=== PATIENT | male | born 1990 | race Caucasian/White ===

== ENCOUNTER 2024-08-17 03:42 | Emergency (ER) | payer SELFPAY ==
[2024-08-17 03:42] VITALS: BP 178/98; PULSE 66; RESP 20; TEMP 36.5; O2SAT 100
--- OUTSIDE RECORDS SUMMARY | 2024-08-17 03:48 | XMS_ITS | Clinical Summary ---
Author Organization [facility] Address [address] [place] [address] Care Team Providers Care Permit Coordinator Name Role Phone Jacob Aragon MD Primary Care Provider [phone] Source Comments [employer],non-owned Affiliates and Associated Physician Practices is amultiple site organization consisting of ambulatory clinics and hospital sitesin [place], [place], [place] and [place]. This disclosure is being madepursuant to the Care Everywhere program and may not contain all information available regarding this patient. Last updated 18.[employer] Allergies No known active allergies Medications * Be aware that medications may not be up to date on this document. Alwaysverify current medications with the patient. Medication Sig Dispensed Refills Start Date End Date Status dulaglutide (Trulicity) 3 MG/0.5ML injection Inject 3 (three) mg subcutaneously every 7 days Active multivitamin daily tablet Take 1 (one) tablet by mouth daily with food Active dexAMETHasone (Decadron) 4 MG tablet Take 1 (one) tablet by mouth once daily as needed (migraine headache) 10 tablet 02/08/2024 Active butalbital-acetam inophen-caffeine (Fioricet) 50-325-40 MG tablet Take 2 (two) tablets by mouth as needed for Headache or Migraine up to 4 times per week 20 tablet 02/08/2024 Active promethazine (Phenergan) 25 MG tablet Take 1 (one) tablet by mouth every 6 hours as needed (nausea or abdominal pain or migraine headache) 20 tablet 02/08/2024 Active ketorolac (Toradol) 10 MG tablet Take 1 (one) tablet by mouth 2 times daily as needed with food (moderate to severe pain or migraine headache) 10 tablet 02/08/2024 Active Social History Tobacco Use Types Packs/Day Years Used Date Smoking Tobacco: Never Assessed Sex and Gender Information Value Date Recorded Sex Assigned at Not on file Gender Identity Not on file Sexual Orientation Not on file Last Filed Vital Signs Vital Sign Reading Time Taken Comments Blood Pressure 129/80 02/08/2024 1:17 PM CDT Pulse 86 02/08/2024 12:19 PM CDT Temperature 36.6 C (97.9 F) 02/08/2024 10:38 AM CDT Respiratory Rate 21 02/08/2024 12:19 PM CDT Oxygen Saturation 99% 02/08/2024 12:19 PM CDT Inhaled Oxygen Concentration - - Weight 90.7 kg (200 lb) 02/08/2024 10:38 AM CDT Height 162.6 cm (5' 4 ) 02/08/2024 10:38 AM CDT Body Mass Index 34.33 02/08/2024 10:38 AM CDT Plan of Treatment Health Maintenance Due Date Last Done Comments HIV SCREENING 2004 HEPATITIS C SCREENING 05/20/2007 DTAP/TDAP/TD VACCINES (1 - Tdap) 2008 HEPATITIS B VACCINE (1 of 3 - 19+ 3-dose series) 2008 COVID-19 VACCINE ( - 2023-2 5 season) 2024 INFLUENZA VACCINE (#1) 2024 7, 03/27/2005 DEPRESSION SCREENING 05/25/2024 ZOSTER VACCINE (1 of 2) 2039 HIB VACCINE Aged Out No longer eligi ble based on patient's age to complete this topic HPV VACCINE Aged Out No longer eligi ble based on patient's age to complete this topic MENINGOCOCCAL (Group B) VACCINE SHARED DECISION-MAKING Aged Out No longer eligible based on patient's age to complete this topic MENINGOCOCCAL GROUPS A/C/Y/W VACCINE Aged Out No longer eligible b ased on patient's age to complete this topic PNEUMOCOCCAL VACCINE Aged Out No long er eligible based on patient's age to complete this topic Care Teams Permit Coordinator Relationship Specialty Start Date End Date Jacob Aragon MD [address] [place] [id number] PCP - General Family Medicine 02/08/24
--- OUTSIDE RECORDS SUMMARY | 2024-08-17 03:48 | XMS_ITS | Clinical Summary ---
Author Organization [facility] Address [address] [place] [address] Care Team Providers Care Tool Room Machinist Name Role Phone Jacob Aragon MD Primary Care Provider [phone] Allergies No known active allergies Medications Blood Glucose Monitoring Suppl (ONE TOUCH ULTRA 2) w/Device Kit 3 Active Lancets (ONETOUCH DELICA PLUS [id number]) Misc 3 Active dulaglutide (TRULICITY) 3 MG/0.5ML injectionIndication s:Type 2 diabetes mellitus with hyperglycemia, without long-term current use of insulin ([facility]),Class 2 severe obesity due to excess calories with serious comorbidity and body mass index (BMI) of 36.0 to 36.9 in adult ([facility]) Inject 3 mg into the skin once a week. 6 mL 4 Active Cholecalciferol (VITAMIN D) 50 MCG (2000 UT) CapIndications:Angela min D deficiency Take 2,000 Int'l Units by mouth daily. 90 capsule 4 Active sertraline (ZOLOFT) 50 MG tabletIndications:G AD (generalized anxiety disorder) Take 1 tablet (50 mg total) by mouth daily. 90 tablet 4 Active dextromethorphan-gu aiFENesin ER (MUCINEX DM) 30-600 MG TABLET SR 12 HR 12 hr tabletIndications:A cute cough,Fluid level behind tympanic membrane of both ears,Viral URI with cough Take 1 tablet by mouth every 12 (twelve) hours as needed. 28 tablet 4 Active butalbital-acetamin ophen-caffeine (ESGIC) 50-325-40 MG tablet Take 2 tablets by mouth. 4 Active dexamethasone (DECADRON) 4 MG tablet Take 1 tablet (4 mg total) by mouth daily as needed. 4 Active ketorolac (TORADOL) 10 MG tablet Take 1 tablet (10 mg total) by mouth. 4 Active promethazine (PHENERGAN) 25 MG tablet Take 1 tablet (25 mg total) by mouth every 6 (six) hours as needed. 4 Active simvastatin (ZOCOR) 40 MG tabletIndications:M ixed hyperlipidemia Take 1 tablet (40 mg total) by mouth nightly at bedtime. OFFICE VISIT DUE APPT NEEDED FOR FURTHER REFILLS 30 tablet 4 Active Active Problems Problem Noted Date Diagnosed Date Vitamin D deficiency 04/15/2023 Benign essential HTN 04/14/2023 Type 2 diabetes mellitus wit h hyperglycemia, without long-term current use of insulin ([facility]) 04/14/2023 Mixed hyperlipidemia 04/14/2023 Class 2 severe obesity due t o excess calories with serious comorbidity and body mass index (BMI) of 36.0 to 36.9 in adult 04/14/2023 Immunizations Name Administration Dates Next Due Dtp 10/01/1993 Hepatitis B Pediatric 09/25/2000,05/13/2000,03/25 Influenza (Generic) 03/27/2005 Influenza Adult (Generic) 07/01/2016,07/01/2016 MMR 10/01/1993 Opv 10/01/1993 Pneumococcal (Prevnar 20) 10/20/2023 Td (TDVAX) 02/16/2004 Tdap (Generic) 07/01/2016,12/10/2013 Family History Medical History Relation Comments Diabetes Father Heart Disease Father Hypertension Father Lung Disease Father Stroke Father Lung Cancer Maternal Grandfather Lung Cancer Maternal Grandmother Diabetes Mother Heart Disease Mother Hypertension Mother Relation Status Comments Father Maternal Grandfather Maternal Grandmother Mother Social History Tobacco Use Types Packs/Day Years Used Date Smoking Tobacco: Never Passive Smoke Exposure: Never Smokeless Tobacco: Never Tobacco Cessation:Counseling Given: Not Answered Alcohol Use Standard Drinks/Week Comments Never 0 (1 standard drink = 0.6 oz pur e alcohol) AUDIT-C Answer Date Recorded Frequency of Alcohol Consumption Never 12/07/2019 Average Number of Drinks Not on file 020 Frequency of Binge Drinking Not on file 11/22 PHQ-2 Answer Date Recorded Patient Health Questionnaire-2 Score 0 11/30/2023 Sex and Gender Information Value Date Recorded Sex Assigned at Not on file Legal Sex Male 8:30 PM CDT Gender Identity Not on file Sexual Orientation Not on file Last Filed Vital Signs Vital Sign Reading Time Taken Comments Blood Pressure 145/108 03/18/2024 3:50 AM CDT Pulse 70 03/18/2024 3:50 AM CDT Temperature 36.3 C (97.3 F) 03/18/2024 3:50 AM CDT Respiratory Rate 16 03/18/2024 3:50 AM CDT Oxygen Saturation 99% 03/18/2024 3:50 AM CDT Inhaled Oxygen Concentration - - Weight 94.4 kg (208 lb 1.8 oz) 03/18/2024 3:32 A M CDT Height 160 cm (5' 3 ) 03/18/2024 3:32 AM CDT Body Mass Index 36.87 03/18/2024 3:32 AM CDT Plan of Treatment Health Maintenance Due Date Last Done Comments Kidney Health Evaluation 1989 Annual Physical 1992 Diabetes: Retinopathy Eye Exam 2007 Hepatitis C 2007 COVID-19 Vaccine ( season) 2024 Influenza Adult (#1) 2024 07/01/2016, 07/01/2016, 03/27/2005 Lipid Panel 04/14/2024 04/14/2023 Hemoglobin A1C 04/23/2024 10/23/2023, 03/2 05/2023, 04/14/2023 PHQ-2 (Physician [place]) 05/25/2024 11/30/2023 PHQ-2 (Physician [place]) 11/29/2024 11/30/2023 DTaP, Tdap and Td Vaccines (4 - Td or Tdap) 07/01/2026 07/01/2016, 12/10/2013, 02/16/2004, Additional history exists Hepatitis B Vaccines Completed 09/25/2000, 05/13/2000, 04/09/2000 Pneumococcal Vaccine: Pediatrics (0 to 5 Years) and At-Risk Patients (6 to 64 Years) Completed 10/20/2023 HPV Vaccines Aged Out No longer eligi ble based on patient's age to complete this topic Meningococcal B Vaccine Aged Out No l onger eligible based on patient's age to complete this topic Meningococcal Vaccine Aged Out No diana daniel eligible based on patient's age to complete this topic RSV Immunizations Under 20 Months Aged Out No longer eligible based on patient's age to complete this topic Procedures Procedure Name Priority Date/Time Associated Diagnosis Comments HEMOGLOBIN, GLYCOSYLATED Routine 10/23/2023 7:52 AM CDT Type 2 diabetes mellitus with hyperglycemia, without long-term current use of insulin LIPID PANEL Routine 04/14/2023 7:45 AM GENERAL ACCOUNTING CLERK Type 2 diabetes mellitus with hyperglycemia, without long-term current use of insulin Mixed hyperlipidemia Class 3 severe obesity due to excess calories with serious comorbidity and body mass index (BMI) of 40.0 to 44.9 in adult from Last 3 Months or Most Recently Relevant to Health Maintenance Results * (ABNORMAL) HEMOGLOBIN, GLYCOSYLATED (10/23/2023 7:52 AM CDT) HGB A1C 6.1(H) <5.7 % 10/23/2023 8:[address] [facility] Comment: ADA GUIDELINES 2010 5.7 TO 6.4% INCREASED RISK OF DIABETES > OR = 6.5% CONSISTENT WITH DIABETES ESTIMATED AVG GLUCOSE 128 mg/dL 10/23/2023 8:[address] [facility] 10/23/2023 7:52 AM CDT us Jacob Aragon MD LABORATORY Final Result [facility] [address] [place] [address], [place] [phone] * LIPID PANEL (04/14/2023 7:45 AM GENERAL ACCOUNTING CLERK) CHOLESTEROL 81 0 - 200 MG/DL 04/14/2023 2:25 PM GENERAL ACCOUNTING CLERK [facility] TRIGLYCERIDES 124 0 - 150 MG/DL 04/14/2023 2:25 PM GENERAL ACCOUNTING CLERK [facility] HDL 41 >40 MG/DL 04/14/2023 2:25 PM GENERAL ACCOUNTING CLERK [facility] LDL (CALCULATED) 15 <100 MG/DL 04/14/2023 2:25 PM GENERAL ACCOUNTING CLERK [facility] NON HDL CHOLESTEROL 40 0 - 130 MG/DL 04/14/2023 2:25 PM GENERAL ACCOUNTING CLERK [facility] Comment: NOTE: WHEN THE TRIGLYCERIDES ARE >200 mg/dL, NON HDL C IS A SECONDARY TARGET OF THERAPY, WITH A GOAL 30 mg/dL HIGHER THAN THE IDENTIFIED LDL C GOAL. CHOL/HDL RATIO 2.0 0.0 - 4.5 04/14/2023 2:25 PM GENERAL ACCOUNTING CLERK [facility] VLDL CALCULATION 25 5 - 55 MG/DL 04/14/2023 2:25 PM [facility] LIPID INTERPRETATION 04/14/2023 2:25 PM [facility] Comment: NIH CONCENSUS REPORT RECOMMENDATIONS: ADULT CHILD LOW RISK: CHOLESTEROL <200 <170 TRIGLYCERIDE <150 --- HDL >=60 --- LDL <100 <110 BORDERLINE: CHOLESTEROL 200-239 170-199 TRIGLYCERIDE 150-199 --- HDL 40-59 --- LDL 100-159 110-129 HIGH RISK: CHOLESTEROL >=240 >=200 TRIGLYCERIDE >=200 --- HDL <40 --- LDL >=160 >=130 04/14/2023 7:45 AM GENERAL ACCOUNTING CLERK us Jacob Aragon MD LABORATORY Final Result [facility] [address] [facility] [facility] [place] [address], from Last 3 Months or Most Recently Relevant to Health Maintenance [place] [address] [place] [address] Care Teams Tool Room Machinist Relationship Specialty Start Date End Date Jacob Aragon MD [address] [place] [address] [place] [address] PCP - General FAMILY PRACTICE 08/13/23
--- NOTE | 2024-08-17 04:01 | ED.URI ---
HPI - URI/Sore Throat General Chief Complaint: Upper Respiratory Infection Stated Complaint: R uppper mouth pain Time Seen by Provider: 08/17/24 03:49 Source: patient Mode of arrival: ambulatory Limitations: no limitations History of Present Illness HPI Narrative: patient is a 34-year-old male with right face pain for the past 2 days. He has no dental complaints at this time but he does feel it in the teeth. MD elicited complaint: nasal congestion and sinus pain ( Right maxilla area) Pertinent past history: other ( none) Onset (ago): day(s) (2) Consistency: constant Severity: moderate Pain scale (0-10): 5 Description of mucous: yellow, green and bloody Able to tolerate fluids by mouth: Yes Exacerbating factors: nothing Relieving factors: nothing Context: other ( patient having right facial pain over the past 2 days with sinus pain and pressure into the teeth) Associated symptoms: other ( dental pain on the right) Treatments prior to arrival: none Related Data Allergies Allergy/AdvReac Type Severity Reaction Status Date / Time No Known Allergies Allergy Verified 08/17/24 03:57 Review of Systems Review of Systems: All systems reviewed & are unremarkable except as noted in HPI and below Constitutional: Constitutional: Reports no additional constitutional complaints Eyes: Eyes: Reports no additional eye complaints ENT: Reports system reviewed and no additional complaints, except as documented Cardiovascular: Cardiovascular: Reports no additional cardiovascular complaints Respiratory: Respiratory: Reports no additional respiratory complaints Gastrointestinal: Gastrointestinal: Reports no additional gastrointestinal complaints Genitourinary: Genitourinary: Reports no additional male genitourinary complaints Musculoskeletal: Musculoskeletal: Reports no additional musculoskeletal complaints Integumentary/Breasts: Skin/Breast: Reports system reviewed and no additional complaints, except as docu Neurologic: Reports system reviewed and no additional complaints, except as documented Psychiatric: Psychiatric: Reports no additional psychiatric complaints Endocrine: Endocrine: Reports no additional endocrine complaints Hematologic/Lymphatic: Hematologic/Lymphatic: Reports no additional hematologic/lymphatic complaints Allergic/Immunologic: Allergic/Immunologic: Reports no additional allergic/immunologic complaints Exam Const: General: healthy appearing Nutritional Appearance: well nourished Orientation/consciousness: patient oriented x3 Limitations: no limitations HENMT: Head: normal to inspection Ears: external ears normal Face/Nose/Sinus: Normal external nose present Teeth and gingiva: dentition normal Other: right maxilla apprehension sign at the sinus Eyes: Conjunctivae: conjunctivae normal Pupils: Equal, round and reactive pupils present EOM: EOMs intact bilaterally Direct Ophthalmoscopy: no photophobia Neck: Neck: normal visual inspection Chest: Chest palpation & inspection: normal inspection of the chest Resp: Effort & Inspection: normal respiratory effort and not labored Auscultation: clear to auscultation bilaterally and no crackles Cardio: Rate: regular rate Rhythm: regular rhythm Heart sounds: no murmurs GI: Inspection: non-distended GI Palp: Yes Soft to palpation and No Tenderness to palpation present (GI) Auscultation: normal bowel sounds : General: Yes bladder normal to palpation Back/Spine/Pelvis: Back: no CVA tenderness Skin: General skin exam: normal color Rashes: no rashes Wounds: no wounds Neuro: General: patient oriented x3 Cranial nerves: Yes Nystagmus not present Speech: normal speech Extrem: General: normal to inspection Psych: Mental Status: mental status grossly normal Affect: normal affect Attitude: cooperative Course Vital Signs Vital signs: Vital Signs Temperature 36.5 C 08/17/24 03:42 Pulse Rate 66 08/17/24 03:42 Respiratory Rate 20 08/17/24 03:42 Blood Pressure 178/98 H 08/17/24 03:42 Pulse Oximetry 100 08/17/24 03:42 Oxygen Delivery Room Air 08/17/24 03:42 Temperature 36.5 C 08/17/24 03:42 Pulse Rate 66 08/17/24 03:42 Respiratory Rate 20 08/17/24 03:42 Blood Pressure 178/98 H 08/17/24 03:42 Pulse Oximetry 100 08/17/24 03:42 Oxygen Delivery Room Air 08/17/24 03:42 MDM - URI/Sore Throat MDM Narrative Medical decision making narrative: patient is a 34-year-old male with right facial pain and sinus pain and pressure. We will treat with Augmentin and prednisone. He wishes to have pain control and we will use Toradol. Discharge Plan Discharge Clinical Impression: Sinusitis Qualifiers: Sinusitis location: maxillary Chronicity: acute Recurrence: non-recurrent Qualified Code(s): J01.00 - Acute maxillary sinusitis, unspecified Patient Disposition: Home, Self-Care Condition: Stable Instructions: Antibiotic Form, Sinusitis (ED) Patient Language: Estonian Prescriptions: New amoxicillin-pot clavulanate 875-125 mg tablet 1 tablet PO BID 10 Days Qty: 20 0RF prednisone 20 mg tablet 40 mg PO DAILY 3 Days Qty: 6 0RF Follow-up/Referrals: UNKNOWN,DOCTOR [Primary Care Provider] - Time of Disposition: 04:13
[2024-08-17] MEDS: KETOROLAC (*BKC) 60 MG/2 ML VIAL IM (04:17)
[2024-08-17] MEDS: AMOXICILLIN/CLAVULANATE K 875-125 MG TAB 1 TABLET PO (04:17)
[2024-08-17] MEDS: predniSONE 20 MG TABLET 40 MG PO (04:17)
--- OUTSIDE RECORDS SUMMARY | 2024-08-17 04:22 | XMS_ITS | Clinical Summary ---
Author Organization [facility] [employer] [facility] Address [address] [place] [address] Care Team Providers Care Oncology Consultant Name Role Phone Jacob Aragon MD Primary Care Provider Source Comments [employer],non-owned Affiliates and Associated Physician Practices is amultiple site organization consisting of ambulatory clinics and hospital sitesin [place], [place], [place] and [place]. This disclosure is being madepursuant to the Care Everywhere program and may not contain all information available regarding this patient. Last updated 18.[employer] Allergies No known active allergies Medications * [...] age to complete this topic Care Teams Oncology Consultant Relationship Specialty Start Date End Date Jacob Aragon MD [address] [place] [id number] PCP - General Family Medicine 02/08/24
[2024-08-17 04:50] VITALS: BP 150/95; PULSE 67; RESP 18; O2SAT 99
== END 2024-08-17 04:50 | disposition home or self-care (01) ==
PROVIDERS: Emergency Provider Emergency Medicine
DX: J01.00 Acute maxillary sinusitis, unspecified (principal)
CPT/HCPCS: 96372; 99283; A9270; J1885; J7512